=== PATIENT | male | born 1955 | race Caucasian/White ===

== ENCOUNTER 2020-01-15 05:36 | Day surgery (SDC) | payer OTHER ==
[2020-01-04 09:53] LABS: ABSOLUTE EOSINOPHILS # (AUTO) 0.1 10^3/uL (0.0-0.6); ABSOLUTE LYMPHOCYTES (AUTO) 1.1 10^3/uL (0.5-4.7); ABSOLUTE MONOCYTES (AUTO) 0.6 10^3/uL (0.1-1.4); ABSOLUTE NEUT (AUTO) 6.1 10^3/uL (1.7-8.2); BASOPHILS % (AUTO) 0.5 % (0-2); EOSINOPHILS % (AUTO) 0.8 % (0-6); HEMATOCRIT 39.6 % (37.9-51.0); HEMOGLOBIN 13.6 g/dL (13.5-17.0); LYMPHOCYTES % (AUTO) 13.9 % (13-45); MEAN CORPUSCULAR HEMOGLOBIN 31.4 pg (27.0-33.4); MEAN CORPUSCULAR HGB CONC 34.3 g/dL (32.0-36.0); MEAN CORPUSCULAR VOLUME 92 fl (80-97); MONOCYTES % (AUTO) 7.7 % (3-13); PLATELET COUNT 246 10^3/uL (150-450); RED BLOOD COUNT 4.33 10^6/uL (4.35-5.55); RED CELL DISTRIBUTION WIDTH 13.6 % (11.5-14.0); SEGMENTED NEUTROPHILS % (AUTO) 77.1 % (42-78); TOTAL CELLS COUNTED % (AUTO) 100 %; WHITE BLOOD COUNT 7.9 10^3/uL (4.0-10.5)
[2020-01-04 10:21] LABS: ANION GAP 7 (5-19); BLOOD UREA NITROGEN 22 mg/dL (7-20); CALCIUM 9.6 mg/dL (8.4-10.2); CARBON DIOXIDE 29 mmol/L (22-30); CHLORIDE 105 mmol/L (98-107); GLUCOSE 95 mg/dL (75-110); POTASSIUM 4.4 mmol/L (3.6-5.0)
--- NOTE | 2020-01-04 18:27 | EKG REPORT ---
SEVERITY:- ABNORMAL ECG - SINUS RHYTHM LEFT VENTRICULAR HYPERTROPHY : Confirmed by: Emmanuel Gonzalez 04-Jan-2020 18:26:43
[~2020-01-15 05:36] MED LIST: ACETAMINOPHEN 325 MG TABLET ONE; ACETAMINOPHEN 325 MG TABLET PO PRN; CEFAZOLIN SODIUM 2 GM in DEXTROSE 5%-WATER 100 ML IV PRN; IBUPROFEN 800 MG in NORMAL SALINE 250 ML IV PRN; LACTATED RINGERS 1000 ML IV PRN; LIDOCAINE 0.5% INJ-PF (5 MG/ML) 50 ML SDV SUBCUT PRN
[2020-01-15] MEDS ORDERED: SUGAMMADEX SODIUM 200 MG/2 ML SDV IV ONE (06:21)
[2020-01-15] MEDS ORDERED: DEXAMETHASONE SOD PHOSPHATE INJ 4 MG/1 ML VIAL ONE (06:21)
[2020-01-15] MEDS ORDERED: FENTANYL CITRATE INJ/PF 100 MCG/2 ML AMPUL ONE (06:21)
[2020-01-15] MEDS ORDERED: MIDAZOLAM 2 MG/2 ML INJ ONE (06:21)
[2020-01-15] MEDS ORDERED: ONDANSETRON HCL INJ/PF 4 MG/2 ML SDV ONE (06:21)
[2020-01-15] MEDS ORDERED: PROPOFOL INJ 200 MG/20 ML VIAL IV ONE (06:22)
[2020-01-15] MEDS ORDERED: LIDOCAINE 0.5% INJ-PF (5 MG/ML) 50 ML SDV ONE (06:23)
[2020-01-15] MEDS ORDERED: BUPIVACAINE HCL 0.25 % INJ/PF (2.5 MG/1 ML) 30 ML VIAL ONE (07:16)
[2020-01-15] MEDS ORDERED: PROMETHAZINE HCL INJ 25 MG/1 ML VIAL IV PRN ×2 (08:12)
[2020-01-15] MEDS ORDERED: ONDANSETRON HCL INJ/PF 4 MG/2 ML SDV IV PRN (08:12)
[2020-01-15] MEDS ORDERED: FENTANYL CITRATE INJ/PF 100 MCG/2 ML AMPUL IV PRN ×3 (08:12)
[2020-01-15] MEDS ORDERED: MEPERIDINE HCL/PF INJ 25 MG/1 ML DISP.SYRIN IV PRN (08:12)
[2020-01-15] MEDS ORDERED: MORPHINE SULFATE 10 MG/ML INJ IV PRN (08:12)
[2020-01-15] MEDS ORDERED: DIPHENHYDRAMINE HCL 50 MG/ML VIAL IV PRN (08:12)
--- NOTE | 2020-01-15 09:19 | Discharge Summary ---
Discharge Summary (SDC) - Discharge Final Diagnosis: indirect right inguinal hernia, symptomatic Date of Surgery: 01/15/20 Discharge Date: 01/15/20 Condition: Stable Treatment or Instructions: Discharge home. Diet as tolerated. Activity: No lifting more than 10 pounds x 4 weeks. Okay to shower on Saturday. Follow-up with me in 7 to 10 days. Guin 10/325 mg p.o. every 6 hours as needed for pain. Naprosyn 500 mg p.o. twice daily x2 weeks. Prescriptions: Hydrocodone/Acetaminophen [Guin 10-325 mg Tablet] 1 tab PO Q6HP PRN #15 tablet PRN Reason: For Pain [facility]: [facility] [[facility] - Discharge Diet: As Tolerated Respiratory Treatments at Home: Deep Breathing/Coughing, Incentive Spirometer Discharge Activity: Balance Activity w/Rest, No Lifting Over 10 Pounds, No Lifting/Push/Pulling Home Care Assistance: None Needed Report the Following to Your Physician Immediately: Shortness of Breath, Nausea, Vomiting, Increase in Pain, Fever over 101 Degrees, Unusual Bleeding, Redness
--- NOTE | 2020-01-15 09:29 | Operative Report ---
Nonrecallable Operative Report DATE OF SURGERY: 01/15/20 PREOPERATIVE DIAGNOSIS: Right inguinal hernia, symptomatic POSTOPERATIVE DIAGNOSIS: Symptomatic indirect right inguinal hernia. OPERATION: Robot-assisted laparoscopic right inguinal hernia repair with mesh. SURGEON: ELIANE WEI ANESTHESIA: GA TISSUE REMOVED OR ALTERED: None COMPLICATIONS: None apparent ESTIMATED BLOOD LOSS: Minimal PROCEDURE: Drains/implants: Large right-sided 3 DMax inguinal hernia mesh. Procedure in detail: After informed consent was obtained, the patient was brought to the operating room and laid in the supine position. The area of the abdomen was prepped and draped in a normal sterile fashion. An incision was created in the supraumbilical position, within the bounds of a previous scar. Dissection was carried through the subcutaneous tissues using sharp and blunt dissection. The linea alba fascia was incised sharply, the abdomen was entered sharply. The balloon trocar was inserted, and pneumoperitoneum was achieved. The abdomen was relatively free of adhesions. 8 mm robotic trochars were then placed in the right and left lateral abdominal wall under direct laparoscopic visualization. This was done without the need of lysis of adhesions. The robot was brought over the patient and docked appropriately. I then assumed my position at the surgeon's console. Attention was turned to the right groin. There was an obvious right inguinal hernia defect with small bowel protruding through the defect. The small bowel was easily reduced. An incision was then created in the peritoneum 3 cm superior to the indirect inguinal hernia defect. A preperitoneal dissection was then undertaken. The peritoneum and hernia sac were freed from the cord structures. This was done with great care, so as not to injure the cord structures. Once the preperitoneal space was opened, a large right-sided 3D max inguinal hernia mesh was placed into the space. The mesh was sutured to the anterior abdominal wall using 2-0 Vicryl suture in simple interrupted fashion. This was done medially and superiorly. Next, the peritoneum was closed using 2- 0 V Lock suture in simple running fashion. Once this was completed, the repair was inspected. It was found to be in good order. Next, the robot was undocked, and I scrubbed back into the case. The supraumbilical fascia was closed using 0 Vicryl suture in [id number] fashion. The overlying skin was closed using 4-0 Vicryl Rapide suture in subcuticular fashion. Dressings were placed, and the procedure was concluded. All sponge, instrument, needle counts were correct x2. Condition: Stable.
[2020-01-15] MEDS: FENTANYL CITRATE INJ/PF 100 MCG/2 ML AMPUL ONE ×2 (09:52→10:03)
[2020-01-15] MEDS ORDERED: MINERAL OIL/PETROLATUM,WHITE OPH OINT 3.5 GM OS ONE (10:30)
[2020-01-15] MEDS ORDERED: ROCURONIUM BROMIDE INJ 50 MG/5 ML VIAL IV ONE (10:33)
[2020-01-15] MEDS ORDERED: SUCCINYLCHOLINE CHLORIDE INJ 200 MG/10 ML VIAL ONE (10:33)
[2020-01-15] MEDS ORDERED: HYDROCODONE/ACETAMINOPHEN 10-325 MG TABLET ONE (10:47)
[2020-01-15 11:58] VITALS: BP 140/80
== END 2020-01-15 11:40 | disposition home or self-care (01) ==
LOC: OROUT 05:36
PROVIDERS: ATTEND Surgery
DX: K40.90 Unilateral inguinal hernia, without obstruction or gangrene, not specified as recurrent (principal); Z87.891 Personal history of nicotine dependence; I10 Essential (primary) hypertension; Z79.899 Other long term (current) drug therapy
CPT/HCPCS: 49505; S2900; 36415; 80048; 840; 84132; 85025; 86850; 86900; 86901; 93005; 93010; C1781; J0330; J0690; J1100; J1741; J2250; J2405; J2704; J3010; J3490; J7050; J7060

== ENCOUNTER 2020-07-14 06:26 | Day surgery (SDC) | payer OTHER ==
[~2020-07-14 06:26] MED LIST changes: -ACETAMINOPHEN 325 MG TABLET ONE; -ACETAMINOPHEN 325 MG TABLET PO PRN; -CEFAZOLIN SODIUM 2 GM in DEXTROSE 5%-WATER 100 ML IV PRN; -IBUPROFEN 800 MG in NORMAL SALINE 250 ML IV PRN; +KETOROLAC TROMETHAMINE 0.45% 4 DROP/0.4 ML DROPERETTE OS PRN; -LACTATED RINGERS 1000 ML IV PRN; -LIDOCAINE 0.5% INJ-PF (5 MG/ML) 50 ML SDV SUBCUT PRN
[2020-07-14] MEDS: TROPICAMIDE 1% OPH SOLN 15 ML OS PRN ×3 (06:49→07:15)
[2020-07-14] MEDS: CYCLOPENTOLATE 0.2%/PHENYLEPHRINE 1% OPH SOLN 2 ML OS PRN ×3 (06:49→07:15)
[2020-07-14] MEDS: TETRACAINE HCL 0.5% OPH SOLN 4 ML OS PRN ×3 (06:49→07:36)
[2020-07-14] MEDS: BESIFLOXACIN HCL 0.6% OPH SUSP 5 ML BOTTLE OS PRN ×4 (06:50→07:57)
[2020-07-14] MEDS ORDERED: FENTANYL CITRATE INJ/PF 100 MCG/2 ML AMPUL ONE (07:06)
[2020-07-14] MEDS ORDERED: MIDAZOLAM 2 MG/2 ML INJ ONE (07:06)
[2020-07-14] MEDS ORDERED: EPINEPHRINE INJ/PF 1 MG/1 ML AMPULE ONE (07:12)
[2020-07-14] MEDS ORDERED: LIDOCAINE 1%/PHENYLEPHRINE 1.5% 0.8 ML SYRINGE ONE (07:12)
[2020-07-14] MEDS ORDERED: CHONDR SU A NA/HYALUR INTRAOC KIT (SURGICARE) ONE (07:13)
[2020-07-14] MEDS: DORZOLAMIDE HCL 2%/TIMOLOL MALEAT 0.5% OPH SOLN 10 ML OS PRN ×2 (07:57)
[2020-07-14] MEDS ORDERED: BALANCED SALT IRRIG SOLN COMB2 15 ML BOTTLE ONE (08:02)
--- NOTE | 2020-07-14 13:15 | Operative Report ---
Operative Report-[facility] Operative Report: DATE OF SURGERY: 07/14/2020 PREOPERATIVE DIAGNOSIS: Cataracts, left eye POSTOPERATIVE DIAGNOSIS: Cataract, left eye OPERATION: Cataract extraction with insertion of an IOL of the left eye. Intraocular Lens Model: [16.5 [id number]] he underwent surgery for difficulty seeing small print SURGEON: Jhon Noriega MD ANESTHESIA: Topical PROCEDURE: After obtaining appropriate consent, the patient's left eye was prepped and draped in a sterile fashion as well as the surgeon in the sterile manner and cataract surgery was started. First a paracentesis blade was used to make a side-port incision. Viscoelastic was used to inflate the anterior chamber. Next a 2.4 mm incision was made with a 2.4 mm blade, clear corneal temporarily. A continuous capsulorrhexis was made using a cystotome and Utrata forceps. Following this hydrodissection was carried out to make the lens fully loose and mobile and it was rotated 90 degrees. Following this, a divide and conquer technique was used to phacoemulsify the lens. The remaining cortex was removed with an irrigation/aspiration. Provisc was instilled into the capsular bag to inflate the bag.The intraocular lens was placed. The remaining viscoelastic material was removed with irrigation/aspiration. Following this, the incision was found to be watertight. Besivance and Cosopt was instilled into the eye and a protective shield was placed over the eye. The patient was returned to the postoperative recovery in a stable condition.
== END 2020-07-14 08:30 | disposition home or self-care (01) ==
LOC: SC 06:26
PROVIDERS: ATTEND Internal Medicine
DX: H25.813 Combined forms of age-related cataract, bilateral (principal); H35.362 Drusen (degenerative) of macula, left eye; H04.123 Dry eye syndrome of bilateral lacrimal glands; I10 Essential (primary) hypertension; K21.9 Gastro-esophageal reflux disease without esophagitis; Z87.891 Personal history of nicotine dependence
CPT/HCPCS: 66984; V2632; J2250; J3490 ×4; J0171; J3010

== ENCOUNTER 2020-08-03 21:25 | Emergency (ER) | payer OTHER ==
--- NOTE | 2020-08-03 22:03 | ER Document Report ---
ED Medical Screen (RME) - General Chief Complaint: Tremor Stated Complaint: SHAKING Time Seen by Provider: 08/03/20 21:58 [facility]: [facility] [[facility]] - Follow up as needed Mode of Arrival: Wheelchair Information source: Patient Notes: 65-year-old male presented to ED for complaint of shaking tremors lightheadedness. He states is been going on for couple months. He states he does not have any history of a before then. He states he was shaking real whole bed at home today so he came to the emergency room to get evaluated. States he speaks to his doctor on the phone but he has not seen them recently. He states he saw his [facility] about a month or so ago for similar symptoms that he is going through now. He states when he saw his doctor about a month or so ago for the same symptoms they put him on antibiotic for 10 days and told him to take it. He states he took the medications as prescribed and there was no dif ference he did follow-up. 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 I have greeted and performed a rapid initial assessment of this patient. A comprehensive ED assessment and evaluation of the patient, analysis of test results and completion of medical decision making process will be conducted by an additional ED providers. TRAVEL OUTSIDE OF THE [place] IN LAST 30 DAYS: No - Related Data Allergies/Adverse Reactions: No Known Allergies Allergy (Verified 08/03/20 21:58) Past Medical History - Past Medical History Cardiac Medical History: Reports: Hx Hypertension Denies: Hx Coronary Artery Disease, Hx Heart Attack Pulmonary Medical History: Denies: Hx Asthma, Hx Bronchitis, Hx COPD, Hx Pneumonia Neurological Medical History: Denies: Hx Cerebrovascular Accident, Hx Seizures GI Medical History: Reports: Hx Gastroesophageal Reflux Disease. Denies: Hx Hepatitis, Hx Hiatal Hernia, Hx Ulcer Musculoskeltal Medical History: Denies Hx Arthritis Infectious Medical History: Denies: Hx Hepatitis Past Surgical History: Reports: Hx Appendectomy. Denies: Hx Open Heart Surgery, Hx Pacemaker - Immunizations Hx Diphtheria, Pertussis, Tetanus Vaccination: No Physical Exam - Vital signs Vitals: Temp Pulse Resp BP Pulse Ox 99.1 F 81 20 132/72 H 98 08/03/20 21:35 08/03/20 21:35 08/03/20 21:35 08/03/20 21:35 08/03/20 21:35 Course - Vital Signs Vital signs: Temp Pulse Resp BP Pulse Ox 99.1 F 81 20 132/72 H 98 08/03/20 21:35 08/03/20 21:35 08/03/20 21:35 08/03/20 21:35 08/03/20 21:35 Doctor's Discharge - Discharge Referrals: [facility] [[facility]] - Follow up as needed
[2020-08-04 01:45] LABS: APPEARANCE,URINE CLEAR; BILIRUBIN,URINE NEGATIVE (NEGATIVE); COLOR,URINE YELLOW; GLUCOSE, URINE NEGATIVE (NEGATIVE); KETONES,URINE NEGATIVE (NEGATIVE); LEUKOCYTE ESTERASE,URINE NEGATIVE (NEGATIVE); NITRITE,URINE NEGATIVE (NEGATIVE); PROTEIN,URINE NEGATIVE (NEGATIVE); URINE SPECIFIC GRAVITY 1.021
[2020-08-04 03:02] LABS: ABSOLUTE BASOPHILS # (AUTO) 0.1 10^3/uL (0.0-0.2); ABSOLUTE EOSINOPHILS # (AUTO) 0.1 10^3/uL (0.0-0.6); ABSOLUTE LYMPHOCYTES (AUTO) 1.9 10^3/uL (0.5-4.7); ABSOLUTE MONOCYTES (AUTO) 0.8 10^3/uL (0.1-1.4); BASOPHILS % (AUTO) 0.8 % (0-2); EOSINOPHILS % (AUTO) 1.7 % (0-6); HEMATOCRIT 37.6 % (37.9-51.0); LYMPHOCYTES % (AUTO) 21.3 % (13-45); MEAN CORPUSCULAR HEMOGLOBIN 32.3 pg (27.0-33.4); MEAN CORPUSCULAR HGB CONC 34.7 g/dL (32.0-36.0); MEAN CORPUSCULAR VOLUME 93 fl (80-97); MONOCYTES % (AUTO) 8.6 % (3-13); PLATELET COUNT 235 10^3/uL (150-450); RED BLOOD COUNT 4.03 10^6/uL (4.35-5.55); RED CELL DISTRIBUTION WIDTH 13.7 % (11.5-14.0); SEGMENTED NEUTROPHILS % (AUTO) 67.6 % (42-78); TOTAL CELLS COUNTED % (AUTO) 100 %; WHITE BLOOD COUNT 8.9 10^3/uL (4.0-10.5)
[2020-08-04 03:20] LABS: ALBUMIN 4.1 g/dL (3.5-5.0); ALKALINE PHOSPHATASE 114 U/L (38-126); ANION GAP 11 (5-19); ASPARTATE AMINO TRANSFERASE 24 U/L (17-59); BILIRUBIN,DIRECT 0.3 mg/dL (0.0-0.4); BILIRUBIN,TOTAL 0.7 mg/dL (0.2-1.3); BLOOD UREA NITROGEN 25 mg/dL (7-20); CALCIUM 9.6 mg/dL (8.4-10.2); CARBON DIOXIDE 26 mmol/L (22-30); CHLORIDE 104 mmol/L (98-107); GLUCOSE 108 mg/dL (75-110); PHOSPHORUS 4.3 mg/dL (2.5-4.5); POTASSIUM 4.4 mmol/L (3.6-5.0); TOTAL PROTEIN 7.1 g/dL (6.3-8.2)
--- NOTE | 2020-08-04 07:14 | ER Document Report ---
ED General - General Chief Complaint: Near Syncope Stated Complaint: SHAKING Time Seen by Provider: 08/03/20 21:58 Primary Care Provider: [facility] [[facility]] - Follow up as needed Mode of Arrival: Wheelchair TRAVEL OUTSIDE OF THE [place] 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 Over the last few months he has developed some generalized tremor. He denies headaches. He denies use of alcohol. He denies any focal sensory or motor deficit. He denies difficulty with speaking or swallowing. He notes that his gait is slightly unsteady primarily due to the tremor. He has h ad no syncopal episodes. States he is never had a head CT. He does not know details of his family history and therefore does not know if there is any history of familial tremor. [facility] for [facility]. - Related Data Allergies/Adverse Reactions: No Known Allergies Allergy (Verified 08/03/20 21:58) Past Medical History - General Information source: Patient, [facility] Records - Social History Smoking Status: Former Smoker Frequency of alcohol use: None Drug Abuse: None Lives with: Friend Family History: Reviewed & Not Pertinent - Past Medical History Cardiac Medical History: Reports: Hx Hypertension Denies: Hx Coronary Artery Disease, Hx Heart Attack Pulmonary Medical History: Denies: Hx Asthma, Hx Bronchitis, Hx COPD, Hx Pneumonia Neurological Medical History: Denies: Hx Cerebrovascular Accident, Hx Seizures Endocrine Medical History: Denies: Hx Diabetes Mellitus Type 1, Hx Diabetes Mellitus Type 2, Hx Hyperthyroidism, Hx Hypothyroidism GI Medical History: Reports: Hx Gastroesophageal Reflux Disease. Denies: Hx Hepatitis, Hx Hiatal Hernia, Hx Ulcer Musculoskeletal Medical History: Denies Hx Arthritis Infectious Medical History: Denies: Hx Hepatitis Past Surgical History: Reports: Hx Abdominal Surgery - Patient had a partial colectomy for resection of a precancerous polyp in , Hx Appendectomy, Other - Recent cataract surgery. Denies: Hx Open Heart Surgery, Hx Pacemaker - Immunizations Hx Diphtheria, Pertussis, Tetanus Vaccination: No Hx Pneumococcal Vaccination: 11/18/13 Review of Systems - Review of Systems Notes: Constitutional: Negative for fever. HENT: Negative for sore throat. Eyes: Negative for visual changes. Cardiovascular: Negative for chest pain. Respiratory: Negative for shortness of breath. Gastrointestinal: Negative for abdominal pain, vomiting or diarrhea. Genitourinary: Negative for dysuria. Musculoskeletal: Negative for back pain. Skin: Negative for rash. Neurological: As per HPI. 10 point ROS negative except as marked above and in HPI. Physical Exam - Vital signs Vitals: Temp Pulse Resp BP Pulse Ox 99.1 F 81 20 132/72 H 98 08/03/20 21:35 08/03/20 21:35 08/03/20 21:35 08/03/20 21:35 08/03/20 21:35 - Notes Notes: GENERAL: Well-developed well-nourished male of approximately stated age exhibit ing mild generalized resting tremor. SKIN: Good turgor no rashes. HEAD: Normocephalic atraumatic. EYES: PERRLA. EOMI. Conjunctivae and sclerae clear. EARS: CANALS AND TMS CLEAR. NOSE: CLEAR. MOUTH: Moist mucosa. Good dentition. No stridor or edema. No drooling. NECK: Supple. No masses or thyromegaly. No adenopathy. Carotids 2+ without bruits. No JVD. BACK: Symmetrical without tenderness. CHEST: Respirations unlabored. Breath sounds clear and symmetrical. HEART: Regular rhythm. No murmur gallop or rub. ABDOMEN: Large healed midline abdominal scar present. Soft nontender without masses, organomegaly or rebound. Bowel sounds normally active. No bruits. GENITALIA: Deferred. EXTREMITIES: No edema. No calf tenderness. Cap refill less than 1.5 seconds. Dorsalis pedis and posterior tibial pulses 3+ and symmetrical. NEUROLOGICAL: MILD GENERALIZED RESTING TREMOR. GCS 15. Alert and oriented x3. Fluent speech. Cranial nerves II through XII intact. Sensorimotor and cerebellar normal. Normal tone. PSYCHIATRIC: Slightly flat affect. Course - Re-evaluation Re-evalutation: CBC and urinalysis as well as comprehensive metabolic profile unremarkable. Normal noncontrast head CT. Patient has a generalized tremor which I suspect may be a familial tremor. His EKG was remarkable only for tremor artifact. Advised [facility]. I might try him on some low-dose diazepam until he can get a [facility]. Findings, clinical impression and plan of treatment have been discussed with patient/family. Understanding of current findings and recommendations has been acknowledged by them and there is agreement regarding disposition and follow-up. 08/04/20 08:47 - Vital Signs Vital signs: Temp Pulse Resp BP Pulse Ox 98.4 F 58 L 16 154/87 H 98 08/04/20 07:16 08/04/20 05:29 08/04/20 08:01 08/04/20 08:01 08/04/20 08:01 - Laboratory Result Diagrams: 08/04/20 02:47 08/04/20 02:47 Laboratory results interpreted by me: 08/04/20 08/04/20 08/04/20 01:16 02:47 02:47 RBC 4.03 L Hgb 13.0 L Hct 37.6 L BUN 25 H Est GFR (MDRD) Non-Af 58 L Urine Urobilinogen 2.0 H - Diagnostic Test Radiology reviewed: Reports reviewed - Per radiologist: Normal noncontrast head CT. - EKG Interpretation by Me Additional EKG results interpreted by me: 08/04/20 07:16 Twelve-lead EKG reviewed by me contemporaneously: 0543 hrs. Indication for study: Presyncope Rhythm: Sinus bradycardia Rate: 57 Intervals: Normal QRS axis: -[address]/T wave changes: None Other: LVH. Mild somatic tremor artifact. Comparison with prior tracing: None Interpretation: Sinus bradycardia. LVH. Mild somatic tremor artifact Discharge - Discharge Clinical Impression: Tremor Condition: Stable Disposition: HOME, SELF-CARE Additional Instructions: You have an abnormal movement of your body that doctors referred to as a tremor. We going to give you some medication to try to help control the symptom. You need further evaluation by neurologist which can be set up by your primary care physician through the [facility]. You may also return here as needed for new or worsening symptoms. Prescriptions: Diazepam [Valium] 2 mg PO TID 10 Days #30 tablet [facility]errals[facility] [[facility] - Follow up as needed
--- NOTE | 2020-08-04 08:14 | RADIOLOGY REPORT (SQ) ---
EXAM DESCRIPTION: CT HEAD WITHOUT IMAGES COMPLETED DATE/TIME: 08/04/2020 8:03 am REASON FOR STUDY: presyncope and tremor COMPARISON: None. TECHNIQUE: Axial images acquired through the brain without intravenous contrast. Images reviewed wi th bone, brain and subdural windows. Additional sagittal and coronal reconstructions were generated. Images stored on PACS. All CT scanners at this facility use dose modulation, iterative reconstruction, and/or weight based d osing when appropriate to reduce radiation dose to as low as reasonably achievable (ALARA). [facility]: Dose Right [facility]: CareDose [facility]: Dose Right [facility]: Teradose 4D [facility]: Smart Channel [employer]lect RADIATION DOSE: CT Rad equipment meets quality standard of care and radiation dose reduction techniq ues were employed. CTDIvol: 53.2 mGy. DLP: 1124 mGy-cm. mGy. LIMITATIONS: None. FINDINGS: VENTRICLES: Normal size and contour. CEREBRUM: No masses. No hemorrhage. No midline shift. No evidence for acute infarction. Normal gra y/white matter differentiation. No areas of low density in the white matter. CEREBELLUM: No masses. No hemorrhage. No alteration of density. No evidence for acute infarction. EXTRAAXIAL SPACES: No fluid collections. No masses. ORBITS AND GLOBE: No intra- or extraconal masses. Normal contour of globe without masses. CALVARIUM: No fracture. PARANASAL SINUSES: No fluid or mucosal thickening. SOFT TISSUES: No mass or hematoma. OTHER: No other significant finding. IMPRESSION: NORMAL BRAIN CT WITHOUT CONTRAST. EVIDENCE OF ACUTE STROKE: NO. COMMENT: Quality ID # [id number]: Final reports with documentation of one or more dose reduction techniques (e.g., Automated exposure control, adjustment of the mA and/or kV according to patient size, use of iterative reconstruction technique) TECHNICAL DOCUMENTATION: JOB ID: [id number] 2010 [employer]- All Rights Reserved Reading location - IP/workstation name: [email or web address]
--- NOTE | 2020-08-04 09:16 | EKG REPORT ---
SEVERITY:- ABNORMAL ECG - SINUS RHYTHM NONSPECIFIC INTRAVENTRICULAR CONDUCTION DELAY LEFT VENTRICULAR HYPERTROPHY TALL R WAVE IN V2, CONSIDER [facility] OR PMI : Confirmed by: Emmanuel Gonzalez 04-Aug-2020 09:15:36
[2020-08-04 09:17] VITALS: BP 139/83
== END 2020-08-04 09:26 | disposition home or self-care (01) ==
LOC: ER 21:25
DX: R25.1 Tremor, unspecified (principal); R55 Syncope and collapse; R42 Dizziness and giddiness; I10 Essential (primary) hypertension
CPT/HCPCS: 36415; 70450; 80053; 81001; 83735; 84100; 84443; 85025; 93005; 93010; 99285